=== PATIENT | female | born 1960 | race Caucasian/White ===

== ENCOUNTER → 2020-10-06 11:51 | Outpatient (CLI) | payer MEDICAID, SELFPAY ==
[2020-09-25 10:30] VITALS: BMI 48.4
--- NOTE | 2020-10-06 | BRBX_PTH ---
PATIENT: MICHELLE BARRERA LOC: OPUS U#:[id number] AGE/SX: 64/F ROOM: RE10/06/[address]: Dr. Chana Izquierdo MD : 1960 BED: DIS: SPEC #: [id number] RECD: 10/06/20 13:03 STATUS: AYLEEN TARIQ #: [id number] JACKIE: 10/06/20 00:[address]: Chana Izquierdo DEPT: SURGICAL PATHOLOGY RECD BY: Lisa Gautam ENTERED: 10/06/20 13:11 SP TYPE: BREAST BX OTHR DR: Edna Primary Care Phys Tissues: Right breast, NOS Procedures: Special Stain Group I Surgery Specimen Level IV AFB Stain (control) GMS Stain (control) HEADER OPERATION: Ultrasound-guided right breast biopsy PRE-OP DIAGNOSIS: Abscess vs mass TISSUE SUBMITTED: Right breast 11 o?clock 2 cm from nipple MICROSCOPIC DIAGNOSIS Right breast at 11 o?clock, ultrasound-guided core biopsy: Focal intraductal hyperplasia without atypia. Fibrosis with associated fat necrosis and microabscess formation. See comment. AM:zoraida 10/07/2020 COMMENT AFB and GMS stains with matched controls were negative for micro-organisms. Clinical correlation is suggested. MICROSCOPIC DESCRIPTION Slides are reviewed. GROSS DESCRIPTION Received in fixative is one container labeled with the patient name and designated right breast. The specimen consists of multiple elongated fragments of garzon-yellow fibroadipose tissue that in aggregate measure 1.2 x 0.5 x 0.1 cm. The entire specimen is submitted in one cassette. / SJ:zoraida 10/06/20 TC:2 CPT: 40440, 84766 x2
--- NOTE | 2020-10-06 11:57 | US_ITS ---
ULTRASOUND GUIDED CORE BIOPSY REASON FOR EXAM: Female, 60 years old. MASS PERTINENT HISTORY: Right breast nodule retroareolar region. COMPARISON: None. TECHNIQUE: (All elements of maximal sterile barrier technique followed, including US elements as applicable) The surgeon performed targeted biopsy of the retroareolar nodular density. A tissue clip marker is seen within. US/US Breast Biopsy 1st Lesion IMPRESSION: A tissue clip marker is seen within the nodular density in the retroareolar region of the right breast. Electronically Signed: Bruce Upton MD at 13:37 EDT , Service support ,
--- NOTE | 2020-10-06 12:58 | PCM.OPRPT ---
Report of Operation Date of Procedure: 10/06/20 Pre-Operative Diagnosis: Right breast abscess vs mass Post-Operative Diagnosis: Same Surgery/Procedure Performed:: Ultrasound-guided right breast biopsy Surgeon: Chana Izquierdo Type of Anesthesia: Local Specimen's removed: Right breast mass/tissue 11:00 2 cm from the nipple Estimated Blood Loss (mL): Minimal Description of Procedure: Procedure: ultrasound-guided core biopsy Indications: 60 year-old female with abscess/phlegmon/mass at 11:00 in the right breast 2 centimeters from the nipple. Risk benefits were discussed the patient and she elected to proceed with ultrasound guided core biopsy with clip placement Description of procedure: Patient was brought into the ultrasound room in the right breast was marked. A timeout was completed verifying correct patient, procedure, site, specially, prior to beginning procedure. The right breast was prepped and draped in usual sterile fashion and using local anesthesia was obtained with 1% lidocaine with epi. The lesion was located with the ultrasound. Small incision was made with 11 blade to introduced the BARD MaxCore through the skin. Under ultrasound guidance multiple core samples were obtained using then 14-gauge BARD MaxCore and sent in formalin for pathology. The Bard dual ultra clip?ribbon clip was then deployed into the biopsy cavity under ultrasound guidance and a picture was taken. Upon completion procedure hemostasis was obtained and a Steri-Strip and OpSite were placed. Patient was then taken to the mammography suite for clip verification. The clip was verified. The patient tolerated the procedure well and was discharged from the breast imaging department good condition. Complications None
== END ==
PROVIDERS: Referring Provider Surgery; Visit Provider Surgery
DX: N62 Hypertrophy of breast (principal); N60.31 Fibrosclerosis of right breast
CPT/HCPCS: 19083; 88305; 88312

== ENCOUNTER → 2020-12-23 14:41 | Outpatient (CLI) | payer MEDICAID, SELFPAY ==
[2020-12-23 16:35] LABS: Absolute Lymphocyte Count 2.26 X10^3/uL (0.83-4.51); Absolute Neutrophil Count 6.5 X10^3/uL (2.0-7.7); Basophil# 0.05 X10^3/uL; Basophil% 0.5 % (0-1); Eosinophil# 0.25 X10^3/uL; Eosinophils% 2.5 % (0-5); Hematocrit 46.9 % (37-47); Hemoglobin 14.3 g/dL (12.0-15.0); Lymphocyte # 2.26 X10^3/ul (0.83-4.51); Lymphocyte % 22.9 % (19-41); Mean Corp Hgb Conc 30.5 g/dL (32-36); Mean Corpuscular Hgb 28.3 pg (27.0-32.0); Mean Corpuscular Volume 92.7 fL (81-99); Mean Platelet Vol. 11.6 fl (6.2-12.0); Monocyte# 0.82 X10^3/uL; Monocyte% 8.3 % (0-10); NRBC Flagged by Analyzer 0 % (0-5); Neutrophil # 6.47 X10^3/uL (2.7-7.7); Neutrophil % 65.5 % (47-70); Platelet Count 263 K/mm3 (150-450); RBC Distribution Width CV 14.6 % (11.6-14.6); RBC Distribution Width SD 49.9 fl (35.1-43.9); Red Blood Count 5.06 M/mm3 (4.2-5.4); White Blood Count 9.9 K/mm3 (4.4-11.0)
[2020-12-23 17:09] LABS: BNP,B-Type NATRIURETIC PEPTIDE 34.8 pg/mL (0-100)
[2020-12-23 17:10] LABS: Hemoglobin A1c 7.3 % (3.8-5.6)
[2020-12-23 17:12] LABS: Vitamin D,25 Hydroxy 22.3 ng/mL
[2020-12-23 17:23] LABS: ALB/GLOB Ratio 0.8 RATIO (0.9-2.4); AST(SGOT) 17 U/L (15-37); Alanine Aminotransfer ALT/SGPT 32 U/L (13-56); Albumin, Serum 3.7 g/dL (3.2-5.0); Alkaline Phosphatase 97 U/L (45-117); Anion Gap 6 (5-15); BUN 10 mg/dL (7-18); BUN/Creat Ratio 15.5 RATIO (10-20); Calcium,Total 9.4 mg/dL (8.5-10.1); Chloride 101 mmol/L (98-107); Cholesterol 127 mg/dL (200); Creatinine, Serum 0.65 mg/dL (0.55-1.02); EST Glomerular Filtration Rate 99 mL/min (>60); Est Glom Filt Rate - Afr Amer 120 mL/min (>60); Globulin 4.4 g/dL (2.2-4.2); Glucose 102 mg/dL (74-106); High Density Lipoprotein 58 mg/dL; Magnesium 1.7 mg/dL (1.6-2.6); Potassium 3.8 mmol/L (3.5-5.1); Protein, Total 8.1 g/dL (6.4-8.2); Sodium Level 139 mmol/L (136-145); Thyroid Stim Hormone (TSH) 0.79 uIU/mL (0.358-3.74); Triglycerides 123 mg/dL; Very Low Density Lipoprotein 25 mg/dL (5-40)
== END ==
PROVIDERS: PCP Internal Medicine; Visit Provider Internal Medicine
DX: E11.9 Type 2 diabetes mellitus without complications (principal); J44.9 Chronic obstructive pulmonary disease, unspecified; F41.9 Anxiety disorder, unspecified; F10.10 Alcohol abuse, uncomplicated; E78.00 Pure hypercholesterolemia, unspecified; Z87.891 Personal history of nicotine dependence
CPT/HCPCS: 36415; 80053; 80061; 82306; 83036; 83735; 83880; 84443; 85025

== ENCOUNTER → 2021-01-21 12:36 | Outpatient (CLI) | payer MEDICARE, MEDICAID, SELFPAY ==
[2020-11-04 05:40] VITALS: BMI 47.9
--- NOTE | 2021-01-21 13:40 | CT_ITS ---
STUDY: LOW DOSE CT LUNG CANCER SCREENING REASON FOR EXAM: Female, 60 years old. Smoker and gt; 40 pack years. History of COPD. RADIATION DOSAGE (If Supplied By Facility): CTDIvol = ( 4.02 ) mGy, DLP = ( 140.94 ) mGycm TECHNIQUE: No contrast was administered. Low dose technique was utilized (average mAS-38 and kVp 120). 1.25 mm axial source images with a slice interval of 1.25-mm were reconstructed in lung windows. 2.5 mm axial source images with a slice interval of 2.5-mm were reconstructed in lung windows. 5.0 mm axial source images with a slice interval of 5.0-mm were reconstructed in soft tissue windows. Nodule measured using lung windows on PACS and/or independent workstation with automated measurement of minimum and maximum diameter. Nodule measurement reported as average diameter rounded to the nearest whole number. Growth is defined as an increase ins size of greater than 1.5 mm. COMPARISON: None. NODULES: There is a 4.1 cm x 0.7 cm linear density in the posterior aspect of the left upper lobe abutting the left major fissure. This extends caudally to the level of the left cardiac border. This most likely presents an area of scarring although underlying neoplastic process cannot be ruled out. A similar pattern of increased soft tissue density is seen along the posterior aspect of the right upper lobe abutting the right minor fissure measuring 9.5 cm x 2.2 cm. This extends to the level of the right hemidiaphragm. Mild increased markings at the lung bases suggestive of scarring. Emphysema: Mild degree of linear scarring at the lung bases. Endobronchial lesion: None Aorta: Mild atherosclerotic plaque formation of the aortic arch. Coronary arteries: Coronary artery calcification. Mediastinal nodes: Small benign-appearing mediastinal lymph nodes. Other chest and abdominal findings: CT/Low Dose CT Lung Screening IMPRESSION: Lung-RADS category 3 - Continue screening with LDCT in 6 months. IMPORTANT NOTES FOR USE: ACR Lung-RADS Version 1.1 Assessment Categories Release Date: 2018 Category: Coded 0-4 bases on nodule(s) with highest degree of suspicion. Negative screen is defined as categories 1 and 2; a positive screen is defined as categories 3 and 4. Category 3 and 4A nodules that are unchanged on interval CT should be coded as category 2, and individuals returned to screening in 12 months. Category 4X: Category 3 or 4 nodules with additional imaging findings that increase the suspicion of lung cancer, such as spiculation, GGN that doubles in size in 1 year, enlarged lymph notes, etc. Category Modifiers: S (significant finding unrelated to lung cancer) Electronically Signed: Bruce Upton MD at 15:45 EDT , Service support ,
--- NOTE | 2021-01-22 05:34 | PFTCOMP ---
COMPLETE PULMONARY FUNCTION TEST INTERPRETATION Brief HPI: Patient is a 60 year old female, currently under the care of myself, who presents to [facility] for complete pulmonary function tests secondary to diagnosis of COPD. Respiratory therapist reports good effort and reproducible results. Interpretation: Forced expiration spirometry shows a severe large airways obstructive ventilatory defect with an FEV1 of 45% predicted. There is a significant bronchodilator response in FVC and FEV1 by strict ATS criteria. Spirograms are of good quality and plateau slowly, indicating slowly emptying areas of the lungs. The respiratory flow volume loop shows decreased expiratory flow rates at all lung volumes consistent with airway obstruction. Lung volumes by body plethysmography show an elevated total lung capacity at 6.93 L, 131% predicted. FRC and RV are elevated out of proportion. Lung volume measurements are consistent with hyperinflation and air-trapping. Diffusion capacity by carbon monoxide is decreased at 50% predicted. The airway resistance is elevated. No previous pulmonary function tests were available for review. Impression: Partial reversible severe large airways obstructive ventilatory defect with symmetric reduction diffusing capacity, resulting in air trapping with hyperinflation, in a pattern consistent with COPD/asthma overlap syndrome.
== END ==
PROVIDERS: PCP Internal Medicine; Referring Provider Internal Medicine Critical Care Medicine; Visit Provider Internal Medicine Critical Care Medicine
DX: J44.9 Chronic obstructive pulmonary disease, unspecified (principal); Z87.891 Personal history of nicotine dependence; Z12.2 Encounter for screening for malignant neoplasm of respiratory organs
CPT/HCPCS: 71271; 94060; 94726; 94729

== ENCOUNTER → 2021-02-03 12:24 | Outpatient (CLI) | payer MEDICARE, SELFPAY ==
[2021-02-03 13:00] LABS: Absolute Lymphocyte Count 1.86 X10^3/uL (0.83-4.51); Absolute Neutrophil Count 6.3 X10^3/uL (2.0-7.7); Basophil# 0.04 X10^3/uL; Basophil% 0.4 % (0-1); Eosinophil# 0.23 X10^3/uL; Eosinophils% 2.5 % (0-5); Hematocrit 45.4 % (37-47); Lymphocyte # 1.86 X10^3/ul (0.83-4.51); Mean Corp Hgb Conc 30.8 g/dL (32-36); Mean Corpuscular Hgb 28.5 pg (27.0-32.0); Mean Corpuscular Volume 92.5 fL (81-99); Mean Platelet Vol. 10.5 fl (6.2-12.0); Monocyte% 8.6 % (0-10); NRBC Flagged by Analyzer 0 % (0-5); Neutrophil # 6.34 X10^3/uL (2.7-7.7); Neutrophil % 68.3 % (47-70); Platelet Count 277 K/mm3 (150-450); RBC Distribution Width CV 15.3 % (11.6-14.6); RBC Distribution Width SD 52.3 fl (35.1-43.9); Red Blood Count 4.91 M/mm3 (4.2-5.4); White Blood Count 9.3 K/mm3 (4.4-11.0)
[2021-02-07 00:06] LABS: Alternaria alternata 1.17 kU/L (Class II); Bermuda Grass 0.28 kU/L (Class 0/I); Bluegrass, Kentucky 0.29 kU/L (Class 0/I); D farinae Mite 0.28 kU/L (Class 0/I); D pteronyssinus 0.35 kU/L (Class I); Dog Epithelia 4.68 kU/L (Class IV); Elm, American White 0.51 kU/L (Class I); Oak, White 0.18 kU/L (Class 0/I); Plantain, English 0.27 kU/L (Class 0/I); Ragweed, Short/Common 0.42 kU/L (Class I)
[2021-02-07 01:06] LABS: Aspirgillus flavus Negative (Neg:<1:1); Aspirgillus fumigatus Negative (Neg:<1:1); Aspirgillus niger Negative (Neg:<1:1); Cytoplasmic Ab (C-ANCA) <1:20 titer (Neg:<1:20)
[2021-02-07 16:05] LABS: Mouse Urine 2.39 kU/L (Class III)
[2021-02-07 16:06] LABS: Immunoglobulin E 1206 IU/mL (6-495); Perinuclear Ab (P-ANCA) <1:20 titer (Neg:<1:20)
== END ==
PROVIDERS: PCP Internal Medicine; Referring Provider Nurse Practitioner Acute Care; Visit Provider Nurse Practitioner Acute Care
DX: J45.909 Unspecified asthma, uncomplicated (principal)
CPT/HCPCS: 36415; 82785; 85025; 86003; 86256; 86606; 87070; 87205

== ENCOUNTER → 2021-02-03 | Outpatient (CLI) | payer MEDICARE, SELFPAY | END | disposition home or self-care (01) | LOC: LABSPEC 12:27 | PROVIDERS: PCP Internal Medicine; Referring Provider Nurse Practitioner Acute Care; Visit Provider Nurse Practitioner Acute Care | DX: J44.9 Chronic obstructive pulmonary disease, unspecified (principal) | CPT/HCPCS: 87070; 87205 ==

== ENCOUNTER 2021-03-15 10:08 | Emergency (ER) | payer MEDICARE, MEDICAID, SELFPAY ==
[2021-03-15 10:08] VITALS: BP 134/84; PULSE 72; RESP 22; TEMP 36; O2SAT 94; BMI 48.9
[2021-03-15 10:15] VITALS: O2SAT 94
--- NOTE | 2021-03-15 10:53 | EKG12_ITS ---
Test Reason : Blood Pressure : / mmHG Vent. Rate : 063 BPM Atrial Rate : 063 BPM P-R Int : 166 ms QRS Dur : 100 ms QT Int : 428 ms P-R-T Axes : 059 000 043 degrees QTc Int : 437 ms Normal sinus rhythm Poor R wave progression Confirmed by SHAHRIAR VILLA, JENIFFER ([id number]), film or videotape editor KAYLEN ALLEN ([id number]) on 03/17/2021 9:13:41 AM Referred By: MICHAEL Confirmed By:JENIFFER BESS MD
--- NOTE | 2021-03-15 10:53 | VDLE_ITS ---
Reason For Study: Swelling RIGHT LEFT GSV is normal. GSV is normal. CFV is compressible, spontaneous, phasic, CFV is compressible, spontaneous, phasic, competent and demonstrates normal competent, and demonstrates normal augmentation. augmentation. FV is compressible, spontaneous, phasic, FV is compressible, spontaneous, phasic, competent and demonstrates normal competent and demonstrates normal augmentation. augmentation. POP V is compressible, spontaneous, phasic, POP V is compressible, spontaneous, phasic, competent and demonstrates normal competent and demonstrates normal augmentation. augmentation. T/P Trunk is compressible. T/P Trunk is compressible. PTV is compressible. PTV is compressible. RT PerV is compressible. LT PerV is compressible. Procedure This is a venous duplex using B-mode, color flow and spectral Doppler. Exam performed portable in ED. Bilateral FV distal visualized with color only, pt unable to tolerate compression. A preliminary report was called and/or faxed to Joey. VL/Venous Duplex US - Doni Extrem Interpretation Summary No evidence for acute deep venous thrombosis bilateral lower extremities with p atent and compressible bilateral great saphenous veins. Technically limited study as bila teral femoral veins only visualized with color flow as patient was unable to tolerate compression. Ordering Physician: Miol Cook Referring Physician: Ela Morrison Performed By: Sommer Gillespie RVT
--- NOTE | 2021-03-15 10:54 | ED.VIS.LOWEX ---
HPI History of Present Illness Chief Complaint: Edema Narrative Narrative: 60-year-old female presenting with leg swelling which has been present for about 3 months. She states initially it was intermittent and occurred when she was ambulating and was painless. She states that now she gets pain down the backs of her legs starting at the posterior knees down to her ankles. Patient does have chronic shortness of breath on exertion because she has a history of COPD and wears oxygen at baseline. She does state that she gets short of breath with ambulation but this would be normal for her. This is not necessarily increased in her. She denies any chest pain. Patient states that she did see her primary care doctor who did have her set up for an echocardiogram today however she felt that she needed to come to the ER because of her pain. [facility] Medical History Alcohol abuse Anxiety Asthma COPD (chronic obstructive pulmonary disease) Diabetes High cholesterol IVDU (intravenous drug user) Ovarian cancer Home Medications hydroxyzine HCl 25 mg tablet 25 mg PO QHS 09/25/20 [History Last Taken Unknown] lamotrigine 100 mg tablet 100 mg PO DAILY 09/25/20 [History Last Taken Unknown] mometasone-formoterol HFA 200 mcg-5 mcg/actuation aerosol inhaler 2 puff INHALATION BID 09/25/20 [History Last Taken Unknown] tiotropium bromide 2.5 mcg/actuation mist for inhalation 2 puff INHALATION DAILY 09/25/20 [History Last Taken Unknown] fluticasone propionate 50 mcg/actuation nasal spray,suspension 2 spray INTRANASAL DAILY #18.2 ml 11/04/20 [Rx Last Taken Unknown] albuterol sulfate 2.5 mg INHALATION Q4H PRN 11/18/20 [History Last Taken Unknown] vortioxetine 10 mg tablet 20 mg PO DAILY 12/23/20 [History Last Taken Unknown] albuterol sulfate 90 mcg/actuation aerosol inhaler 2 puff INHALATION Q6H PRN #8.5 g 12/28/20 [Rx Last Taken Unknown] atorvastatin 20 mg tablet 20 mg PO DAILY #90 tab 12/28/20 [Rx Last Taken Unknown] azithromycin 250 mg tablet 250 mg PO QMWF #18 tab 12/28/20 [Rx Last Taken Unknown] metformin 750 mg tablet,extended release 24 hr 750 mg PO DAILY #90 tab 12/28/20 [Rx Last Taken Unknown] montelukast 10 mg tablet 10 mg PO DAILY #90 tab 12/28/20 [Rx Last Taken Unknown] tramadol [Ultram] 50 mg PO Q8H PRN #10 tab 03/15/21 [Rx Last Taken Unknown] Allergy/AdvReac Type Severity Reaction Status Date / Time fluticasone Allergy Mild Hives Verified 03/15/21 10:12 [From Advair Diskus] ipratropium [From Combivent] Allergy Mild Hives Verified 03/15/21 10:12 peanut Allergy Mild Hives Verified 03/15/21 10:12 salmeterol Allergy Mild Hives Verified 03/15/21 10:12 [From Advair Diskus] Family History Grandmother Breast cancer Heart disease Hypertension Diabetes Father Hypertension Sister Cancer Surgical History S/P bilateral oophorectomy S/P section S/P hysterectomy S/P laparoscopic cholecystectomy Social History Smoking Status: Current every day smoker tobacco type: cigarettes Tobacco: How many years used: 44 alcohol intake: former substance use type: former substance user ROS ROS ED Constitutional Constitutional ED: Denies chills or fever(s) Eyes Eyes: Denies blurry vision or change in vision ENT ENT ED: Denies rhinorrhea or sore throat Cardiovascular Cardiovascular: Denies chest pain or palpitations Respiratory/Chest Respiratory/Chest: Reports dyspnea and dyspnea on exertion Gastrointestinal Gastrointestinal: Denies abdominal pain, nausea or vomiting Genitourinary Genitourinary ED: Denies dysuria or hematuria Musculoskeletal Musculoskeletal: Reports other Details: Lower extremity swelling and pain ; Denies myalgias Integumentary Denies Abrasions or rash Neurologic Neurologic: Denies headache(s) or paresthesias EXAM Physical Exam Const Vital Signs: 03/15/21 10:08 03/15/21 10:15 03/15/21 10:18 Temperature 96.8 F L Temperature Source Temporal Pulse Rate 72 Respiratory Rate 22 H Respiratory Effort Normal Non-Labored Respiratory Pattern Tachypnea Blood Pressure 134/84 H Blood Pressure Mean 100 Pulse Ox 94 94 Oxygen Delivery Method Nasal Cannula Nasal Cannula Oxygen Flow Rate (L/min) 3 3 03/15/21 13:54 Temperature Temperature Source Pulse Rate 70 Respiratory Rate 15 Respiratory Effort Respiratory Pattern Blood Pressure 134/76 H Blood Pressure Mean 95 Pulse Ox 96 Oxygen Delivery Method Nasal Cannula Oxygen Flow Rate (L/min) 3 Positive well nourished General Appearance ED: NAD HEENT Reports moist mucous membranes normocephalic and atraumatic Eyes PERRL Chest Wall inspection of chest normal and palpation of chest normal Resp normal respiratory effort and no retractions Cardio regular rate and regular rhythm Extremity Extremity Narrative: Tenderness to palpation to both legs bilaterally from the bilateral knees posteriorly down the cast. There is no cords palpated. There is no significant edema. Psych mental status grossly normal Skin No no wounds Lesions: No no lesions Rashes: No no rashes MDM MDM MDM Narrative Medical decision making narrative: Patient presenting with bilateral lower extremity edema. Patient has shortness of breath but states that is chronic and not really changed. She missed her scheduled appointment for an echocardiogram today due to bilateral lower extremity pain and swelling which she had prior to the echocardiogram being ordered. I did check bilateral lower extremity duplexes and these are negative for DVT. I do not appreciate much pitting edema. Her CBC is within normal limits. Renal function and electrolytes are normal. Troponin is 6. BNP is 50.1. EKG on my interpretation shows a sinus rhythm with a ventricular rate of [address] elevation or depression. Chest x-ray on my interpretation does appear to have a mild degree of vascular congestion given her negative BNP and negative troponin is unclear the etiology. Patient is not requiring any more supplemental oxygen and she already wears at baseline. I did attempt to call her primary care physician to obtain close follow-up and echocardiogram which I think likely is the next step. I did not receive a return call in a timely manner and the patient now currently wants to go home. She states that she actually scheduled her last echocardiogram by calling for an appointment. At this point I feel the patient is safe to be discharged home. She request something for her leg pain and she was prescribed a short supply of Ultram. Patient is discharged home in able condition. Impression: 1. Bilateral lower extremity pain 2. Chronic dyspnea Lab Data Attestation: I reviewed the patient's lab results. Labs: Laboratory Results - last 24 hr 03/15/21 03/15/2103/15/21 11:10 11:10 11:10 WBC 8.7 RBC 4.59 Hgb 13.4 Hct 43.5 MCV 94.8 MCH 29.2 MCHC 30.8 L RDW Std Deviation 51.3 H RDW Coeff of Tod 14.6 Plt Count 253 MPV 10.4 Immature Gran % (Auto) 0.200 Neut % (Auto) 66.6 Lymph % (Auto) 22.7 [place] % (Auto) 8.2 Eos % (Auto) 1.7 Baso % (Auto) 0.6 Absolute Neuts (auto) 5.8 Absolute Lymphs (auto) 1.97 Nucleated RBC % 0 Sodium 141 Potassium 4.4 Chloride 105 Carbon Dioxide 34.0 H Anion Gap 2 L BUN 16 Creatinine 0.67 Estim Creat Clear Calc 82.55 Est GFR (MDRD) Af Amer 115 Est GFR (MDRD) Non-Af 95 BUN/Creatinine Ratio 23.8 H Glucose 142 H Calcium 9.5 Troponin I High Sens 6 B-Natriuretic Peptide 50.1 Radiography Diagnostic Testing: Clinical Impression(s) from Imaging Studies Chest X-Ray 03/15/21 11:04 IMPRESSION: Mild degree of vascular congestion. Electronically Signed: Bruce Upton MD at 12:06 EST , Service support , Discharge Plan Triage Chief Complaint: Edema ED Provider: Milo Cook Dx/Rx/DC Orders Instructions: ED Peripheral Edema, Bilateral Prescriptions: New tramadol [Ultram] 50 mg tablet 50 mg PO Q8H PRN (Reason: pain) Qty: 10 RF: 0 No Action lamotrigine [Lamictal] 100 mg tablet 100 mg PO DAILY RF: 0 Dulera 200-5 mcg/actuation HFA aerosol inhaler 2 puff inhalation BID RF: 0 Spiriva Respimat 2.5 mcg/actuation mist 2 puff inhalation DAILY RF: 0 hydroxyzine HCl 25 mg tablet 25 mg PO QHS RF: 0 Trintellix 10 mg tablet 20 mg PO DAILY RF: 0 fluticasone propionate 50 mcg/actuation spray,suspension 2 spray intranasal DAILY Qty: 18.2 RF: 3 albuterol sulfate 2.5 mg /3 mL (0.083 %) solution for nebulization 2.5 mg inhalation Q4H PRN (Reason: Shortness Of Breath Or Wheezing) RF: 0 albuterol sulfate [Ventolin HFA] 90 mcg/actuation HFA aerosol inhaler 2 puff inhalation Q6H PRN (Reason: shortness of breath or wheezing) Qty: 8.5 RF: 6 azithromycin 250 mg tablet 250 mg PO QMWF Qty: 18 RF: 2 atorvastatin 20 mg tablet 20 mg PO DAILY Qty: 90 RF: 1 metformin 750 mg tablet extended release 24 hr 750 mg PO DAILY Qty: 90 RF: 1 montelukast 10 mg tablet 10 mg PO DAILY Qty: 90 RF: 1 Primary Care Provider: Ela Morrison Referrals: Ela Morrison MD [Primary Care Provider] - Disposition Disposition: Home, Self Care
--- NOTE | 2021-03-15 10:59 | NURSING ---
NO OLD EKGS
--- NOTE | 2021-03-15 11:04 | RAD_ITS ---
STUDY: X-RAY CHEST REASON FOR EXAM: Female, 60 years old. Dyspnea TECHNIQUE: Single AP portable view of the chest. COMPARISON: None. FINDINGS: EKG electrodes are seen. Mild degree of vascular congestion. There is no demonstrated pleural abnormality. Normal size heart. Normal mediastinum and kathie. Normal visualized pulmonary arteries. Normal visualized aortic arch and descending thoracic aorta. Normal visualized thoracic spine. Normal visualized ribs, clavicles, and shoulders. There is no demonstrated abnormality of the visualized soft tissue structures of the upper abdomen. RAD/Chest 1 View (Portable) IMPRESSION: Mild degree of vascular congestion. Electronically Signed: Bruce Upton MD at 12:06 EST , Service support ,
[2021-03-15 11:18] LABS: Absolute Lymphocyte Count 1.97 X10^3/uL (0.83-4.51); Absolute Neutrophil Count 5.8 X10^3/uL (2.0-7.7); Basophil# 0.05 X10^3/uL; Basophil% 0.6 % (0-1); Eosinophil# 0.15 X10^3/uL; Eosinophils% 1.7 % (0-5); Hematocrit 43.5 % (37-47); Hemoglobin 13.4 g/dL (12.0-15.0); Lymphocyte # 1.97 X10^3/ul (0.83-4.51); Lymphocyte % 22.7 % (19-41); Mean Corp Hgb Conc 30.8 g/dL (32-36); Mean Corpuscular Hgb 29.2 pg (27.0-32.0); Mean Corpuscular Volume 94.8 fL (81-99); Mean Platelet Vol. 10.4 fl (6.2-12.0); Monocyte# 0.71 X10^3/uL; Monocyte% 8.2 % (0-10); NRBC Flagged by Analyzer 0 % (0-5); Neutrophil # 5.77 X10^3/uL (2.7-7.7); Neutrophil % 66.6 % (47-70); Platelet Count 253 K/mm3 (150-450); RBC Distribution Width CV 14.6 % (11.6-14.6); RBC Distribution Width SD 51.3 fl (35.1-43.9); Red Blood Count 4.59 M/mm3 (4.2-5.4); White Blood Count 8.7 K/mm3 (4.4-11.0)
[2021-03-15 11:22] VITALS: O2SAT 95
[2021-03-15 11:36] LABS: Anion Gap 2 (5-15); BUN 16 mg/dL (7-18); BUN/Creat Ratio 23.8 RATIO (10-20); Calcium,Total 9.5 mg/dL (8.5-10.1); Chloride 105 mmol/L (98-107); Creatinine, Serum 0.67 mg/dL (0.55-1.02); EST Glomerular Filtration Rate 95 mL/min (>60); Est Glom Filt Rate - Afr Amer 115 mL/min (>60); Estimated Creatinine Clearance 82.55 ml/min; Glucose 142 mg/dL (74-106); Potassium 4.4 mmol/L (3.5-5.1); Sodium Level 141 mmol/L (136-145); Troponin-I HS 6 pg/mL (3.0-54.0)
[2021-03-15 11:38] LABS: BNP,B-Type NATRIURETIC PEPTIDE 50.1 pg/mL (0-100)
[2021-03-15 13:54] VITALS: BP 134/76; PULSE 70; RESP 15; O2SAT 96
--- NOTE | 2021-03-15 14:19 | NURSING ---
[id number] [facility] [id number] LEFT MESSAGE ON CELL PHONE [id number] LEFT MESSAGE ON OFFICE PHONE
[2021-03-15] MEDS: traMADol 50 MG Tablet PO (14:30)
[2021-03-15 14:38] VITALS: RESP 14
== END 2021-03-15 14:39 | disposition home or self-care (01) ==
PROVIDERS: Emergency Provider Student in an Organized Health Care Education/Training Program; PCP Internal Medicine
DX: M79.605 Pain in left leg (principal); M79.604 Pain in right leg; R06.00 Dyspnea, unspecified; J44.9 Chronic obstructive pulmonary disease, unspecified; F41.9 Anxiety disorder, unspecified; E11.9 Type 2 diabetes mellitus without complications; Z99.81 Dependence on supplemental oxygen; Z79.51 Long term (current) use of inhaled steroids; Z79.899 Other long term (current) drug therapy; F17.210 Nicotine dependence, cigarettes, uncomplicated
CPT/HCPCS: 71045; 80048; 83880; 84484; 85025; 93005; 93970; 99285; A4216

== ENCOUNTER → 2021-03-23 12:41 | Outpatient (CLI) | payer MEDICARE, MEDICAID, SELFPAY ==
--- NOTE | 2021-03-23 12:47 | ECHOD_ITS ---
Reason For Study: PHTN Procedure This was a 2D Doppler, Color Flow transthoracic echocardiogram. The study was technically difficult. Due to body habitus. Exam performed in department. Left Ventricle Based upon the 2D echocardiographic images obtained there appears to be grossly normal left ventricular size, wall motion, and systolic function. The estimated ejection fraction is 65 %. Diastolic function is indeterminate. Right Ventricle Normal RV size. Normal systolic function. Atria Normal left atrium. Normal right atrium. No doppler evidence for ASD. Mitral Valve There is no mitral annular calcification. Normal mitral valve. Trivial mitral valve insufficiency. Tricuspid Valve Normal tricuspid valve. Mild tricuspid valve insufficiency. Right ventricular systolic pressure estimated to be 35 mmHg. Aortic Valve The aortic valve is not well visualized. Pulmonic Valve The pulmonic valve is not well visualized. Great Vessels Normal sized aortic root. Pericardium/Pleural No pericardial effusion. MMode/2D Measurements & Calculations LVIDd: 5.4 cm IVSd: 0.85 cm Ao root diam: 2.7 cm LVIDs: 4.0 cm LVPWd: 0.84 cm RVDd: 3.2 cm FS: 24.5 % LAV(MOD-bp): 55.6 ml LA A4 area: 15.0 cm2 LA dimension(2D): 3.5 cm LAV(MOD-bp) Indexed: 23.4 ml/m2 LAV(MOD-sp2): 55.8 ml LAV(MOD-sp4): 41.4 ml RA A4 area: 13.0 cm2 Time Measurements MV dec time: 0.16 sec Doppler Measurements & Calculations MV E max johnny: 128.0 cm/sec Lat Peak E' Johnny: 8.1 cm/sec Med Peak E' Johnny: 9.6 cm/sec MV A max johnny: 81.4 cm/sec E/E' lat: 15.7 E/E' med: 13.3 MV E/A: 1.6 Ao V2 max: 171.6 cm/sec LV V1 max: 109.6 cm/sec PA V2 max: 114.6 cm/sec Ao max P.8 mmHg LV V1 max P.8 mmHg TR max johnny: 260.8 cm/sec TR max P.2 mmHg ECHO/Echo Complete Interpretation Summary The study was technically difficult. Based upon the 2D echocardiographic images obtained there appears to be grossly normal left ventricular size, wall motion, and systolic function. The estimated ejection fraction is 65 %. Trivial mitral valve insufficiency. Mild tricuspid valve insufficiency. Right ventricular systolic pressure estimated to be 35 mmHg. Diastolic function is indeterminate. Ordering Physician: Ela Morrison Referring Physician: Chana Izquierdo Performed By: Kinsey Valle RDCS, RVT
== END ==
PROVIDERS: PCP Internal Medicine; Referring Provider Surgery; Visit Provider Surgery
DX: I27.20 Pulmonary hypertension, unspecified (principal); J44.9 Chronic obstructive pulmonary disease, unspecified
CPT/HCPCS: 93306

== ENCOUNTER 2021-07-07 14:00 | Outpatient (CLI) | payer MEDICARE, MEDICAID, SELFPAY ==
[2021-07-07 15:06] LABS: Color, Urine Yellow (Yellow); Glucose, Dipstick Normal (Normal); Ketone-Dipstick Negative (Negative); Leukocyte Esterase-Dipstick 25 /ul (Negative); Nitrite-Dipstick Negative (Negative); Occult Blood-Urine Negative /ul (Negative); Protein-Dipstick Negative (Negative); Urine Bilirubin Dipstick Negative (Negative); Urine Clarity Clear (Clear); Urine Urobilinogen Normal (Normal); Urine pH 6.5 (5.0 - 8.0)
== END 2021-07-07 23:59 | disposition home or self-care (01) ==
LOC: LABSPEC 14:03
PROVIDERS: PCP Internal Medicine; Referring Provider Internal Medicine; Visit Provider Internal Medicine
DX: R39.89 Other symptoms and signs involving the genitourinary system (principal)
CPT/HCPCS: 81002; 87086; 87088

== ENCOUNTER 2021-08-04 12:54 | Outpatient (CLI) | payer MEDICARE, MEDICAID, SELFPAY ==
--- NOTE | 2021-08-04 12:58 | CT_ITS ---
STUDY: CT CHEST WITHOUT CONTRAST REASON FOR EXAM: Female, 60 years old. New lung nodule 1 cm RADIATION DOSAGE (If Supplied By Facility): CTDIvol = ( 21.93 ) mGy, DLP = ( 773.67 ) mGycm TECHNIQUE: Transaxial imaging was performed without the administration of intravenous contrast material. Multiplanar coronal and sagittal images were reformatted. Individualized dose optimization techniques were used for this CT. COMPARISON: Comparison is made with prior study dated 01/21/2021. FINDINGS: Small bilateral axillary lymph nodes. Emphysematous changes. There is thickening of the left major fissure. Increased markings in the lower lungs with bandlike density suggestive of atelectasis and/or scarring. Since prior study, the thickening of the right major fissure as resolved. There has been improvement of the bandlike density in the lingular segment of the left upper lobe. There are calcifications of the coronary arteries. There are multiple small lymph nodes within the mediastinum, which are normal in size and morphology most compatible with reactive lymph hyperplasia. Normal hilar regions. Normal unenhanced pulmonary arteries. Normal aorta arch and descending thoracic aorta. There are multi-level degenerative changes of the thoracic spine. There is no demonstrated abnormality of the visualized upper abdomen. CT/Chest without Contrast IMPRESSION: Persistent bandlike soft tissue density in the region of the left major fissure. This has improved. Persistent bandlike densities in both lower lobes suggestive of atelectasis. These are new as compared to prior study. Electronically Signed: Bruce Upton MD at 14:47 EDT ,
== END 2021-08-04 23:59 | disposition home or self-care (01) ==
LOC: OPBI 12:56
PROVIDERS: PCP Internal Medicine; Referring Provider Nurse Practitioner Acute Care; Visit Provider Nurse Practitioner Acute Care
DX: R91.1 Solitary pulmonary nodule (principal); R92.8 Other abnormal and inconclusive findings on diagnostic imaging of breast
CPT/HCPCS: 71250; 76642; 77062; 77066; G0279

== ENCOUNTER 2021-08-04 13:29 | Outpatient (CLI) | payer MEDICARE, MEDICAID, SELFPAY ==
--- NOTE | 2021-08-04 13:34 | US_ITS ---
STUDY: ULTRASOUND BREAST - RIGHT REASON FOR EXAM: Female, 60 years old. Nipple discharge in the right breast. Prior biopsy of the retroareolar region. TECHNIQUE: Axial and longitudinal images of the RIGHT breast were performed with a high resolution ultrasound transducer. # OF IMAGES: 35 COMPARISON: Comparison is made with prior mammogram done earlier today. FINDINGS: RIGHT Breast: The retroareolar region of the right breast was examined with ultrasound. There is evidence of edematous changes at the biopsy site although no focal mass lesion is seen. US/Breast Limited Unilateral IMPRESSION: Findings suggestive of edematous changes at the biopsy site. No distinct mass is seen. ASSESSMENT CATEGORY: BIRADS Category 2: Benign. A letter regarding these results will be sent to the patient by the facility within 30 days. Electronically Signed: Bruce Upton MD at 15:40 EDT ,
--- NOTE | 2021-08-04 13:35 | BI_ITS ---
MAMMOGRAPHY - BILATERAL DIAGNOSTIC REASON FOR EXAM: Female, 60 years old. History of the right breast discharge. PERTINENT HISTORY: Grandmother with breast cancer. Prior right ultrasound-guided breast biopsy. TECHNIQUE: Digital bilateral breast gloria (3D mammographic acquisition) in the CC and MLO projections. 2-D mediolateral oblique (MLO) and craniocaudad (CC) views of both breasts were obtained. CAD: Full Field Digital Mammography with Computer Added Detection was performed. COMPARISON: Comparison is made with prior outside examination of 07/21/2020. FINDINGS: Breast Composition: There are scattered areas of fibroglandular density. There are no dominant masses or suspicious calcifications. A tissue clip marker is seen in the retroareolar region of the right breast. Stable appearance of the bilateral axillary lymph nodes. No other significant abnormalities are identified. BI/DIAG MAMM W/CAD, BILAT IMPRESSION: Status post ultrasound-guided breast biopsy of the retroareolar region of the right breast. One year follow-up recommended. (A) ASSESSMENT CATEGORY: BIRADS Category 2: Benign. A letter regarding these results will be sent to the patient by the facility within 30 days. Approximately 10% of breast cancers are not detected by mammography. A normal mammogram should not delay biopsy of a clinically suspicious abnormality. Electronically Signed: Bruce Upton MD at 14:55 EDT ,
== END 2021-08-04 23:59 | disposition home or self-care (01) ==
LOC: CT 13:31
PROVIDERS: PCP Internal Medicine; Visit Provider Surgery
DX: Z00.00 Encounter for general adult medical examination without abnormal findings (principal)
CPT/HCPCS: 76642; 77062; 77066; G0279

== ENCOUNTER → 2021-10-07 | Outpatient (CLI) | payer MEDICARE, MEDICAID, SELFPAY ==
[2021-10-07 12:58] LABS: Absolute Neutrophil Count 7.5 X10^3/uL (2.0-7.7); Basophil# 0.05 X10^3/uL; Basophil% 0.5 % (0-1); Eosinophil# 0.13 X10^3/uL; Eosinophils% 1.2 % (0-5); Hematocrit 44.8 % (37-47); Hemoglobin 13.7 g/dL (12.0-15.0); Lymphocyte % 20.2 % (19-41); Mean Corp Hgb Conc 30.6 g/dL (32-36); Mean Corpuscular Hgb 28.3 pg (27.0-32.0); Mean Corpuscular Volume 92.6 fL (81-99); Mean Platelet Vol. 10.7 fl (6.2-12.0); Monocyte# 0.96 X10^3/uL; Monocyte% 8.8 % (0-10); NRBC Flagged by Analyzer 0 % (0-5); Neutrophil # 7.52 X10^3/uL (2.7-7.7); Platelet Count 291 K/mm3 (150-450); RBC Distribution Width CV 13.4 % (11.6-14.6); RBC Distribution Width SD 45.1 fl (35.1-43.9); Red Blood Count 4.84 M/mm3 (4.2-5.4); White Blood Count 10.9 K/mm3 (4.4-11.0)
== END | disposition home or self-care (01) ==
LOC: LAB 12:09
PROVIDERS: PCP Internal Medicine; Referring Provider Internal Medicine Pulmonary Disease; Visit Provider Internal Medicine Pulmonary Disease
DX: J45.50 Severe persistent asthma, uncomplicated (principal)
CPT/HCPCS: 36415; 85025

== ENCOUNTER → 2021-10-25 | Outpatient (CLI) | payer MEDICARE, SELFPAY ==
[2021-10-25 12:48] LABS: Color, Urine Yellow (Yellow); Glucose, Dipstick Normal (Normal); Ketone-Dipstick 5 mg/dl (Negative); Leukocyte Esterase-Dipstick 25 /ul (Negative); Nitrite-Dipstick Negative (Negative); Occult Blood-Urine 10 /ul (Negative); Protein-Dipstick 30 mg/dl (Negative); Specific Gravity, Urine 1.025 (1.002-1.030); Urine Bilirubin Dipstick Negative (Negative); Urine Clarity Sl. Cloudy (Clear); Urine Urobilinogen Normal (Normal)
[2021-10-25 12:54] LABS: Bacteria 2+ /hpf (None Seen); Mucous, Urine 2+ /hpf (<or=2+); Red Blood Cells-Urine 0-5 SEEN /hpf (0-5); Squamous Epithelial Cells - UA 0-5 SEEN /hpf (5-10); White Blood Cells 0-5 SEEN /hpf (0-5)
== END | disposition home or self-care (01) ==
LOC: LABSPEC 11:10
PROVIDERS: PCP Internal Medicine; Referring Provider Physician Assistant; Visit Provider Physician Assistant
DX: R39.89 Other symptoms and signs involving the genitourinary system (principal); R30.0 Dysuria
CPT/HCPCS: 81001; 87086; 87088

== ENCOUNTER → 2022-01-05 | Outpatient (CLI) | payer MEDICARE, SELFPAY ==
[2022-01-05 09:56] LABS: Absolute Lymphocyte Count 2.03 X10^3/uL (0.83-4.51); Absolute Neutrophil Count 6.3 X10^3/uL (2.0-7.7); Basophil# 0.05 X10^3/uL; Basophil% 0.5 % (0-1); Eosinophil# 0.17 X10^3/uL; Eosinophils% 1.8 % (0-5); Hematocrit 44.2 % (37-47); Hemoglobin 13.9 g/dL (12.0-15.0); Lymphocyte # 2.03 X10^3/ul (0.83-4.51); Lymphocyte % 21.8 % (19-41); Mean Corp Hgb Conc 31.4 g/dL (32-36); Mean Corpuscular Hgb 28.2 pg (27.0-32.0); Mean Corpuscular Volume 89.7 fL (81-99); Mean Platelet Vol. 10.8 fl (6.2-12.0); Monocyte# 0.71 X10^3/uL; Monocyte% 7.6 % (0-10); NRBC Flagged by Analyzer 0 % (0-5); Neutrophil # 6.31 X10^3/uL (2.7-7.7); Platelet Count 286 K/mm3 (150-450); RBC Distribution Width CV 14.6 % (11.6-14.6); RBC Distribution Width SD 47.4 fl (35.1-43.9); Red Blood Count 4.93 M/mm3 (4.2-5.4); White Blood Count 9.3 K/mm3 (4.4-11.0)
[2022-01-05 10:16] LABS: Hemoglobin A1c 7.8 % (3.8-5.6)
[2022-01-05 10:25] LABS: Vitamin D,25 Hydroxy 10.3 ng/mL
[2022-01-05 10:28] LABS: ALB/GLOB Ratio 0.7 RATIO (0.9-2.4); AST(SGOT) 30 U/L (15-37); Alanine Aminotransfer ALT/SGPT 52 U/L (13-56); Albumin, Serum 3.3 g/dL (3.2-5.0); Alkaline Phosphatase 85 U/L (45-117); Anion Gap 9 (5-15); BUN 11 mg/dL (7-18); BUN/Creat Ratio 11.7 RATIO (10-20); Calcium,Total 9.2 mg/dL (8.5-10.1); Chloride 102 mmol/L (98-107); Cholesterol 163 mg/dL (200); Creatinine, Serum 0.94 mg/dL (0.55-1.02); EST Glomerular Filtration Rate 64 mL/min (>60); Est Glom Filt Rate - Afr Amer 77 mL/min (>60); Globulin 4.5 g/dL (2.2-4.2); Glucose 189 mg/dL (74-106); High Density Lipoprotein 60 mg/dL; Potassium 3.6 mmol/L (3.5-5.1); Protein, Total 7.8 g/dL (6.4-8.2); Sodium Level 139 mmol/L (136-145); Triglycerides 158 mg/dL; Very Low Density Lipoprotein 32 mg/dL (5-40)
== END | disposition home or self-care (01) ==
PROVIDERS: PCP Internal Medicine; Visit Provider Internal Medicine
DX: E11.9 Type 2 diabetes mellitus without complications (principal); J44.9 Chronic obstructive pulmonary disease, unspecified; F41.9 Anxiety disorder, unspecified; E78.00 Pure hypercholesterolemia, unspecified; G47.33 Obstructive sleep apnea (adult) (pediatric); F10.10 Alcohol abuse, uncomplicated; E55.9 Vitamin D deficiency, unspecified
CPT/HCPCS: 36415; 80053; 80061; 82306; 83036; 85025

== ENCOUNTER → 2022-06-24 | Outpatient (CLI) | payer MEDICARE, SELFPAY ==
--- NOTE | 2022-06-24 13:33 | MRI_ITS ---
STUDY: MRI RIGHT HIP REASON FOR EXAM: Female, 61 years old. Avascular necrosis/long-term steroid use/pain hip -- , acute onset severe pain TECHNIQUE: Standardized fat and water weighted pulse sequences were obtained in all 3 orthogonal planes. COMPARISON: None. FINDINGS: There is severe loss of the articular joint space of the hip joint, with full thickness loss of the hyaline cartilage. There is moderate joint effusion. There is lateral osteoarthritic spurring of the acetabular rim. There is mild edema of the acetabulum. There is tear of the superior labrum, series 12 images 02/24 and 03/27. There is lateral osteoarthritic spurring of the femoral head. There is marrow edema and enhancement with stress or insufficiency fracture of the right femoral head. Normal femoral neck and intratrochanteric region. Normal gluteus minimus, medius and iliopsoas tendons and distal insertions. There is no trochanteric, iliopsoas or iliopectineal bursitis. Normal superior and inferior pubic rami. Normal pubic symphysis. Normal ischial tuberosity. Normal origin of the hamstring tendons. Normal visualized iliac wing, sacroiliac joint, and sacral ala. Normal visualized soft tissue structures of the pelvis. Normal bladder. Uterus is not seen consistent with hysterectomy. No dilated loops of bowel. There is scoliosis and degenerative change of the visualized lower lumbar spine. MRI/Lower Ext Joint Only W/WO Cont IMPRESSION: Degenerative change with tear of the labrum. Stress or insufficiency fracture of the femoral head. Electronically Signed: Chris Ivey MD at 8:17 EST ,
[2022-06-24 14:20] LABS: CREATININE FINGERSTICK < 0.9 mg/dL (0.55-1.02); EGFR FINGERSTICK > 60.0000 mL/min (>60)
== END | disposition home or self-care (01) ==
LOC: MRI 13:33
PROVIDERS: PCP Internal Medicine; Referring Provider Internal Medicine; Visit Provider Internal Medicine
DX: M87.051 Idiopathic aseptic necrosis of right femur (principal)
CPT/HCPCS: 73723; A9575

== ENCOUNTER 2022-08-09 15:30 | Outpatient (RCR) | payer MEDICARE, MEDICAID, SELFPAY ==
--- NOTE | 2022-07-19 08:28 | HP.PTEVAL_ITS ---
Patient's Visit Information MICHELLE BARRERA is a 61 year old F referred to Physical Therapy by Dr. Elton Polo DO with a diagnosis of R hip OA, lumbar DDD. Date of Evaluation: 07/13/22 Physical Therapist: Rodrigo Cross DPT - Visit Plan Frequency: 2x /Week Duration: 6 Weeks Plan: Start with general mobility in aquatic setting. May need chair lift to enter pool pending R hip pain. She is also on supplemental O2 and will need to be accounted for. Progress hip strength and ROM as tolerated. Will need to work on steps eventually, but will have to ease into. - Subjective Pt. is here today for her initial evaluation with diagnosis of R hip OA and DD of lumbar spine. Pt. arrives with daughter today with use of WC. Pt. reports having increased R hip pain and posterior hip pain for ~6 months, with it being very painful over the past 2 months. Pt. reports having both groin pain and posterior hip pain. Pt. is now not walking much due to pain. She is using a FWW but only short distances. Pt. denies N/T. She has had xrays of both her hip and lumbar spine both showing degenerative changes. Pt. is limited with transfer and walking very short distances in her home. She is able to stairs, a few steps at home to enter/exit with step to pattern. She is able to sleep okay, but any functional mobility is very pain. She does not have much pain in sitting, very painful with standing in groin. Pt. is hopeful to reduce symptoms in order to get back to all household activities. PMH: obesity, COPD, COVID early 2022, diabetes, requires supplemental O2 2-4L pending exertion. - Pain R groin Pain Intensity (Out of 10): 6 Pain Intensity Range: 4, 10 R posterior hip Pain Intensity (Out of 10): 6 Pain Intensity Range: 4, 10 Lumbar spine Pain Intensity (Out of 10): 4 Pain Intensity Range: 2, 7 - Objective POSTURE: Pt. has general flexed posture, anterior pelvic tilt, increased wt. shift to L side. PALPATION: Pt. has tenderness posterior hip, along lumbar paraspinals. NEURO: normal to sensation and DTR of BLEs. Pt. unable to rise on heels and toes secondary to pain, but has no myotomal weakness noted. ROM: LUMBAR SPINE: flexion mod loss increase NW, ext max loss increase NW, SB mod loss bilat increase NW, rotation mod loss bilat increase NW. R hip: very difficult to assess secondary to pain in lumbar spine and R hip. flexion 90deg, abd NT, extension lacking 10deg. MMT: RLE: ankle 4/5 throughout; knee: ext 4/5, flexion 4/5; hip: flexion: 3/5 increase worse, ext 3/5 increase worse. LLE: ankle 5/5 throughout 4/5 throughout; knee: ext 4/5, flexion 4/5' hip: flexion 4/5 NE, ext 4/5 NE. Core strength: poor-. GAIT: Pt. ambulated 8' with FWW with heavy use of AD. Pt. have increased difficulty with advancing RLE, and high levels of pain during R stance phase. Pt. had to stop gait secondary to pain. STAIRS: DNT secondary to pain. - Balance/Special Test Scores Lower Extremity Functional Score: 0 - Goals Goal 1:: LTG: Pt. to be I with HEP. Goal Time Frame: 4-6 Weeks Goal 2:: STG: Pt. to be able to walk throughout house with FWW with 0-4/10 pain in R hip and lumbar spine allowing increased I at home. Goal Time Frame: 2-4 Weeks Goal 3:: LTG: Pt. to ambulate throughout home with FWW with 0-2/10 pain in R hip and lumbar spine. Goal Time Frame: 4-6 Weeks Goal 4:: LTG: Pt. to have increased BLE and core strength by 1/2 grade of all effected musculature allowing for increased tolerance to all functional mobility. Goal Time Frame: 4-6 Weeks Goal 5:: LTG: Pt. to be able to sit for 1 hour without increase in R hip and lumbar spine pain. Goal Time Frame: 4-6 Weeks - Rehabilitation Potential Physical Therapy Diagnosis: Pt. has signs and symptoms consistent with R hip OA and lumbar DDD. Pt. has very limited mobility currently secondary to high levels of pain. She is also over all deconditioned most likely due to her COPID and recent issue with COVID. Pt. doers not live a very active lifestyle which has also added to her debility. At this point in time I would like to work on general mobility in the aquatic setting, then progressing to B hip and core strengthening as tolerated. Rehabilitation Potential: Fair - Anticipated Interventions Patient/Client Instruction: Educate patient on: Condition, Plan of Care, Risk Factors, Benefits of Fitness Program For the Purpose of:: To foster healthy habits, To improve decision making, To facilitate caregiver knowledge, To improve self management, To prevent re- injury, To improve ability to perform tasks related to life management Therapeutic Exercise to Include: Strength training, Power training, Balance training, Body mechanics, Postural training, Flexibilty training, Gait and locomotor training, In an aquatic setting, Passive ROM, Active ROM For the Purpose of:: To decrease pain, To increase ROM, To improve nutrient delivery to tissue, To increase oxygenation perfusion, To improve muscle performance and motor function, To improve ability to perform ADL's, To increase tolerance to activity/condition/position, To improve performance and independence with ADL's, To improve ability of physical actions for home/community/work/leisure, To improve gait and locomotor functions, To improve health of tissue, To decrease soft tissue restriction, To increase flexibility/ROM, To improve endurance, To improve balance, To improve safety with gait Thank you for the opportunity to evaluate your patient. For Medicare and Medicare HMO plans, please review the plan of care and approve it. It will need to be FAXED BACK to us at [phone] for Medicare purposes. For Medicare only, by signing this I certify the plan of care. Please let me know if there are questions or concerns regarding this plan of care. Physician Signature: Date:
== END 2022-08-09 19:00 | disposition home or self-care (01) ==
LOC: PT 15:30
PROVIDERS: PCP Internal Medicine; Referring Provider Orthopaedic Surgery; Visit Provider Orthopaedic Surgery
DX: M16.11 Unilateral primary osteoarthritis, right hip (principal); M51.36 Other intervertebral disc degeneration, lumbar region
CPT/HCPCS: 97113; 97161

== ENCOUNTER → 2022-11-07 | Outpatient (CLI) | payer MEDICARE, MEDICAID, SELFPAY ==
--- NOTE | 2022-11-07 12:07 | BI_ITS ---
MAMMOGRAPHY - BILATERAL SCREENING REASON FOR EXAM: Female, 62 years old. Routine annual screening examination. PERTINENT HISTORY: Grandmother with breast cancer. History of prior right ultrasound-guided breast biopsy. TECHNIQUE: Digital bilateral breast evonne (3D mammographic acquisition) in the CC and MLO projections. 2-D mediolateral oblique (MLO) and craniocaudad (CC) views of both breasts were obtained. CAD: Full Field Digital Mammography with Computer Added Detection was performed. COMPARISON: Comparison is made with prior study of August 04, 2021. FINDINGS: Breast Composition: There are scattered areas of fibroglandular density. There are no dominant masses or suspicious calcifications. A tissue clip marker is once again seen in the retroareolar region of the right breast. No other significant abnormalities are identified. There has been no significant change since the prior study. BI/SCRN MAMM (CAD)W/EVONNE BILAT IMPRESSION: Stable bilateral screening mammogram. Yearly follow-up mammogram recommended. (A) ASSESSMENT CATEGORY: BIRADS Category 2: Benign. A letter regarding these results will be sent to the patient by the facility within 30 days. Approximately 10% of breast cancers are not detected by mammography. A normal mammogram should not delay biopsy of a clinically suspicious abnormality. [id number] Electronically Signed: Bruce Upton MD at 13:55 EDT ,
== END | disposition home or self-care (01) ==
LOC: OPBI 12:06
PROVIDERS: PCP Internal Medicine; Referring Provider Internal Medicine; Visit Provider Internal Medicine
DX: Z12.31 Encounter for screening mammogram for malignant neoplasm of breast (principal)
CPT/HCPCS: 77063; 77067

== ENCOUNTER → 2022-12-13 | Outpatient (CLI) | payer MEDICARE, MEDICAID, SELFPAY ==
[2022-12-13 17:46] LABS: Amphetamine Urine VISTA NEGATIVE (<1000 ng/mL); Barbiturate Urine VISTA NEGATIVE (< 200 ng/mL); Benzodiazepine Urine VISTA NEGATIVE (< 200 ng/mL); Cocaine Urine VISTA NEGATIVE (< 300 ng/mL); Ecstacy Urine VISTA NEGATIVE (< 500 ng/mL); Methadone Urine VISTA NEGATIVE (< 300 ng/mL); PCP Urine VISTA NEGATIVE (< 25 ng/mL); THC Urine VISTA NEGATIVE (< 50 ng/mL); Vista UDS pH Range 5
== END | disposition home or self-care (01) ==
LOC: LAB 13:50
PROVIDERS: PCP Internal Medicine; Referring Provider Anesthesiology Pain Medicine; Visit Provider Anesthesiology Pain Medicine
DX: F11.20 Opioid dependence, uncomplicated (principal)
CPT/HCPCS: 80307

== ENCOUNTER → 2023-11-08 | Outpatient (CLI) | payer MEDICARE, SELFPAY ==
[2023-11-08 15:52] LABS: ALB/GLOB Ratio 0.7 RATIO (0.9-2.4); AST(SGOT) 22 U/L (15-37); Alanine Aminotransfer ALT/SGPT 28 U/L (13-56); Albumin, Serum 3.7 g/dL (3.2-5.0); Alkaline Phosphatase 89 U/L (45-117); Anion Gap 6 (5-15); BUN 19 mg/dL (7-18); BUN/Creat Ratio 23.9 RATIO (10-20); Calcium,Total 10.1 mg/dL (8.5-10.1); Chloride 101 mmol/L (98-107); Cholesterol 161 mg/dL (200); EST Glomerular Filtration Rate 77 mL/min (>60); Est Glom Filt Rate - Afr Amer 94 mL/min (>60); Glucose 103 mg/dL (74-106); High Density Lipoprotein 54 mg/dL; Potassium 4.2 mmol/L (3.5-5.1); Protein, Total 8.7 g/dL (6.4-8.2); Sodium Level 137 mmol/L (136-145); Thyroid Stim Hormone (TSH) 1.96 uIU/mL (0.358-3.74); Triglycerides 128 mg/dL; Very Low Density Lipoprotein 26 mg/dL (5-40)
[2023-11-08 15:54] LABS: Absolute Lymphocyte Count 2.48 X10^3/uL (0.83-4.51); Basophil# 0.07 X10^3/uL; Basophil% 0.7 % (0-1); Eosinophil# 0.21 X10^3/uL; Erythrocyte Sedimentation Rate 25 mm/hr (0-30); Hematocrit 50.9 % (37-47); Hemoglobin 14.7 g/dL (12.0-15.0); Lymphocyte # 2.48 X10^3/ul (0.83-4.51); Lymphocyte % 23.4 % (19-41); Mean Corp Hgb Conc 28.9 g/dL (32-36); Mean Corpuscular Hgb 25.7 pg (27.0-32.0); Mean Corpuscular Volume 88.8 fL (81-99); Mean Platelet Vol. 10.7 fl (6.2-12.0); Monocyte# 0.82 X10^3/uL; Monocyte% 7.7 % (0-10); NRBC Flagged by Analyzer 0 % (0-5); Neutrophil # 6.99 X10^3/uL (2.7-7.7); Platelet Count 337 K/mm3 (150-450); RBC Distribution Width CV 16.7 % (11.6-14.6); Red Blood Count 5.73 M/mm3 (4.2-5.4); White Blood Count 10.6 K/mm3 (4.4-11.0)
[2023-11-08 15:58] LABS: Hemoglobin A1c 5.8 % (3.8-5.6)
[2023-11-09 12:45] LABS: Vitamin D,25 Hydroxy 23.8 ng/mL
== END | disposition home or self-care (01) ==
LOC: BIMLAB 14:21
PROVIDERS: PCP Internal Medicine; Referring Provider Internal Medicine; Visit Provider Internal Medicine
DX: M47.816 Spondylosis without myelopathy or radiculopathy, lumbar region (principal); J44.9 Chronic obstructive pulmonary disease, unspecified; E11.9 Type 2 diabetes mellitus without complications; M16.11 Unilateral primary osteoarthritis, right hip; G47.33 Obstructive sleep apnea (adult) (pediatric); E78.00 Pure hypercholesterolemia, unspecified; F41.9 Anxiety disorder, unspecified; E55.9 Vitamin D deficiency, unspecified
CPT/HCPCS: 36415; 80053; 80061; 82306; 83036; 84443; 85025; 85652; 86140

== ENCOUNTER → 2024-06-06 | Outpatient (CLI) | payer MEDICARE, SELFPAY ==
--- NOTE | 2024-06-06 12:44 | US_ITS ---
PROCEDURE: KIDNEY AND BLADDER REASON FOR EXAM: Ureteral calculi TECHNIQUE: Ultrasound of the kidneys and bladder COMPARISON: None. FINDINGS: Normal renal sizes, parenchymal thicknesses, and echotextures. No hydronephrosis. No cysts or large solid renal masses. Grossly normal bladder contour. No large bladder wall mass visualized. Right kidney Size: 10.3 x 4.9 x 5.9 cm. Corticomedullary junction is preserved. Renal cortex measures 1.1 cm in thickness. No calculi are identified. No hydronephrosis. LEFT Kidney Size: 10.1 x 5.2 x 5.1 cm. Corticomedullary junction is preserved. Renal cortex measures 1.2 cm in thickness. No calculi are identified. No hydronephrosis.. Urinary bladder measures 7.7 x 5.7 by 6.9 cm for an estimated volume of 159.6 mL. Bladder wall measures 0.3 cm. No masses or calculi identified. Bilateral ureteral jets are noted. US/Kidney and Bladder IMPRESSION: 1. NORMAL RENAL AND BLADDER ULTRASOUND. 2. Bilateral ureteral jets are noted. 3. Additional measurements, as provided above. [facility]
== END | disposition home or self-care (01) ==
LOC: US 12:39
PROVIDERS: PCP Internal Medicine
DX: N20.1 Calculus of ureter (principal)
CPT/HCPCS: 76770

== ENCOUNTER → 2025-01-01 | Outpatient (CLI) | payer MEDICARE, SELFPAY ==
[2025-01-01 13:12] LABS: Hematocrit 43.5 % (37-47); Hemoglobin 13.5 g/dL (12.0-15.0); Immature Granulocytes Count 0.030 X10^3/uL (0.0-0.0); Mean Corp Hgb Conc 31.0 g/dL (32-36); Mean Corpuscular Volume 89.7 fL (81-99); Mean Platelet Vol. 11.3 fl (6.2-12.0); NRBC Flagged by Analyzer 0 % (0-5); Platelet Count 253 K/mm3 (150-450); RBC Distribution Width CV 14.4 % (11.6-14.6); RBC Distribution Width SD 47.0 fl (35.1-43.9); Red Blood Count 4.85 M/mm3 (4.2-5.4); White Blood Count 9.7 K/mm3 (4.4-11.0)
[2025-01-01 14:22] LABS: AST(SGOT) 23 U/L (<=31); Alanine Aminotransfer ALT/SGPT 18 U/L (<=34); Albumin, Serum 4.0 g/dL (3.4-4.8); Alkaline Phosphatase 77 U/L (35-104); Anion Gap 10 (5-15); BUN 16 mg/dL (4-19); BUN/Creat Ratio 24.5 RATIO (10-20); Calcium,Total 9.6 mg/dL (7.6-11.0); Carbon Dioxide 28.0 mmol/L (21.0-32.0); Chloride 103 mmol/L (98-108); Free T3 2.8 pg/mL (2.18-3.98); Globulin 3.6 g/dL (2.2-4.2); Glucose 96 mg/dL (70-99); Magnesium 1.8 mg/dL (1.5-2.2); Potassium 4.4 mmol/L (3.3-5.1); Pro- Brain NATRIURETIC PEPTIDE 215 pg/mL (<=900); Vitamin D,25 Hydroxy 18.2 ng/mL (30-100)
== END | disposition home or self-care (01) ==
LOC: LAB 11:50
PROVIDERS: PCP Internal Medicine; Referring Provider Internal Medicine; Visit Provider Internal Medicine
DX: L65.9 Nonscarring hair loss, unspecified (principal); J44.9 Chronic obstructive pulmonary disease, unspecified; E11.9 Type 2 diabetes mellitus without complications; Z87.891 Personal history of nicotine dependence; E78.00 Pure hypercholesterolemia, unspecified
CPT/HCPCS: 36415; 80053; 82306; 83036; 83735; 83880; 84439; 84443; 84481; 85025